=== PATIENT | female | born 1965 | race African-American/Black ===

== ENCOUNTER 2018-02-20 14:09 | Emergency (ER) | payer OTHER ==
[~2018-02-20] VITALS: Ht 162.6 cm; Wt 79.4 kg
[2018-02-20 16:31] LABS: ABSOLUTE NEUTROPHILS 2.4 thou/uL (1.4-8.2); EOSINOPHILS 0.9 % (0.0-3.0); HEMATOCRIT 36.9 % (37.0-47.0); HEMOGLOBIN 12.3 gm/dL (12.0-15.0); MCH 28.7 pg (26.0-34.0); MCHC 33.3 g/dL (28.0-37.0); MCV 86.1 fL (80.0-100.0); MONOCYTES 6.5 % (1.0-8.0); PLATELET COUNT 293 thou/uL (150-400); POLYS 43.6 % (36.0-66.0); RBC 4.29 mil/uL (4.20-5.00); RDW 13.4 % (10.5-14.5); WBC 5.6 thou/uL (4.0-11.0)
[2018-02-20 16:43] LABS: CALCIUM 9.3 mg/dL (8.5-10.1); CREATININE 0.9 mg/dL (0.6-1.0); POTASSIUM 4.1 mmol/L (3.5-5.1)
[2018-02-20] MEDS ORDERED: IBUPROFEN 600600 M1 PO (18:10)
[2018-02-20] MEDS ORDERED: TEGRETOL XR100 MG PO (18:10)
[2018-02-20] MEDS ORDERED: NORCO 5-325 TA1 EACH PO (18:10)
[2018-02-20] MEDS ORDERED: SENNA-DOCUSATE1 EACH PO (18:10)
[2018-02-20 18:46] VITALS: BP 159/84
== END 2018-02-20 18:40 | disposition home or self-care (01) ==
LOC: ER 14:09
PROVIDERS: Emergency Medicine
DX: G50.0 Trigeminal neuralgia (principal)

== ENCOUNTER 2021-10-13 15:41 | Emergency (ER) | payer BC, OTHER ==
[~2021-10-13] VITALS: Ht 162.6 cm; Wt 84.8 kg
[~2021-10-13 15:41] MED LIST: IBUPROFEN 600600 M1 PO; NORCO 5-325 TA1 EACH PO; SENNA-DOCUSATE1 EACH PO; TEGRETOL XR100 MG PO
[2021-10-13 17:04] LABS: ABSOLUTE NEUTROPHILS 1.6 thou/uL (1.4-8.2); EOSINOPHILS 0.6 % (0.0-3.0); HEMATOCRIT 38.9 % (37.0-47.0); LYMPHOCYTES 52.5 % (24.0-44.0); MCH 28.6 pg (26.0-34.0); MCHC 33.4 g/dL (28.0-37.0); MCV 85.5 fL (80.0-100.0); MONOCYTES 7.5 % (1.0-8.0); PLATELET COUNT 282 thou/uL (150-400); POLYS 38.4 % (36.0-66.0); RBC 4.54 mil/uL (4.20-5.00); RDW 13.5 % (10.5-14.5); WBC 4.1 thou/uL (4.0-11.0)
[2021-10-13 17:16] LABS: CALCIUM 8.7 mg/dL (8.5-10.1); CREATININE 0.8 mg/dL (0.6-1.0); POTASSIUM 3.4 mmol/L (3.5-5.1)
[2021-10-13 17:22] LABS: ALBUMIN 3.8 g/dL (3.4-5.0); TOTAL BILIRUBIN 0.4 mg/dL (0.2-1.0); TOTAL PROTEIN 7.9 g/dL (6.4-8.2)
[2021-10-13 18:22] VITALS: BP 180/95
--- NOTE | 2021-10-15 16:09 | EKG ---
[facility] [place] [address] ELECTROCARDIOGRAM REPORT Name: OZZIE FRANK [id number] Admission: 10/13/21 Attend Phys: Discharge: 10/13/21 Date of : 63 Report #: [id number] [facility] ED Test Date: 2021-10-13 Test Time: 17:02:14 Pat Name: OZZIE FRANK Department: Room: Gender: F [employer] Mechanic: UNKNOWN : 1965 Requested By: Paula Wolf Order Number: [id number] MD: Edwar Mensah Measurements Intervals Anderson Rate: 73 P: 59 UT: 169 QRS: -31 QRSD: 101 T: 16 QT: 414 QTc: 457 Interpretive Statements Sinus rhythm Left axis deviation RSR' in V1 or V2, probably normal variant No previous ECG available for comparison Electronically Signed On 10-15-2021 16:09:12 TARIFF COUNSEL by Edwar Mensah [email or web address] <ELECTRONICALLY SIGNED> By: Edwar Mensah MD, [facility] 10/15/21 1609 170 Edwar Mensah MD, FACC /EPI
== END 2021-10-13 22:00 | disposition home or self-care (01) ==
LOC: ER 15:41
PROVIDERS: Nurse Practitioner
DX: U07.1 COVID-19 (principal); I10 Essential (primary) hypertension; R51.9 Headache, unspecified; E11.9 Type 2 diabetes mellitus without complications; Z90.710 Acquired absence of both cervix and uterus